=== PATIENT | female | born 1960 | race Caucasian/White ===

== ENCOUNTER → 2019-12-13 | Outpatient (CLI) | payer OTHER ==
[~2019-12-13] MED LIST: ACET325 PO; ALBU90OI INH; AMOCLA875 PO; ASCO500 PO; ASPI325 PO; ATEN25 PO; AZIT250 PO; AZIT500 PO; BCOIRO PO; CALC PO; CHOL10002 PO; DAYQUIL; DOXY100T53 PO; ESCI10 PO; ESTR1; FISH1000 PO; FLEC50 PO; FLUT.05NI; FURO40 PO; Flecainide Acet50 MG PO; GUAPHELA PO; HYDACE5 PO; HYDGUAL120 PO; HYDR1TAB94 PO; IBUP600 PO; LEVSOD100 PO; LISI5 PO; MELO7.5 PO; METF500 PO; METO50 PO; MONT10T PO; MUCINEX 600 MG; OMEP20ER PO; ONDA4 PO; POTCHL20ER PO; PROACE100 PO; RXHYDGUAS PO; RXONDA4ODT MM; RXPROACE PO; RXSULTRIDS PO; SULTRIDS PO; TETR250 PO; VICODIN 5-3001 EACH PO; WARF5 PO; XARELTO20 MG PO
[2019-12-17 15:08] LABS: HPV 16 Negative (Negative); HPV 18 Negative (Negative); HPV OTHER HR TYPES Negative (Negative)
== END | disposition home or self-care (01) ==
LOC: LAB UCHC 12:18 → LAB SHORT 12:18
PROVIDERS: Internal Medicine
DX: Z01.419 Encounter for gynecological examination (general) (routine) without abnormal findings (principal)
CPT/HCPCS: 87624; G0123

== ENCOUNTER 2020-09-16 21:19 | Emergency (ER) | payer OTHER ==
[~2020-09-16] VITALS: Ht 162.6 cm; Wt 99.8 kg
[2020-09-16 22:39] LABS: BASOPHILS ABSOLUTE AUTO 0.02 K/mm3 (0.00-0.23); BASOPHILS PERCENT AUTO 0 % (0-2); EOSINOPHILS ABSOLUTE AUTO 0.01 K/mm3 (0.00-0.68); EOSINOPHILS PERCENT AUTO 0 % (0-6); Hematocrit 39.5 % (33.0-51.0); IMMATURE GRAN ABSOLUTE AUTO 0.01 K/mm3 (0.00-0.10); IMMATURE GRAN PERCENT AUTO 0 % (0-1); LYMPHOCYTES ABSOLUTE AUTO 1.52 K/mm3 (0.84-5.20); LYMPHOCYTES PERCENT AUTO 27 % (21-46); MONOCYTES ABSOLUTE AUTO 0.39 K/mm3 (0.16-1.47); MONOCYTES PERCENT AUTO 7 % (4-13); Mean Corpuscular HGB 29.5 pg (26.0-34.0); Mean Corpuscular HGB Conc 35.4 g/dL (31.5-36.5); Mean Corpuscular Volume 83 fL (80-100); Mean Platelet Volume 11.6 fL (9.1-12.4); NEUTROPHILS ABSOLUTE AUTO 3.73 K/mm3 (1.96-9.15); NEUTROPHILS PERCENT AUTO 66 % (41-73); Platelet Count 228 K/mm3 (150-400); RDW Coefficient Variation 14.2 % (11.7-14.2); RDW Standard Deviation 43.3 fL (35.1-46.3); Red Blood Cell Count 4.75 M/mm3 (3.80-5.20); White Blood Cell Count 5.68 K/mm3 (4.00-11.30)
[2020-09-16 23:04] LABS: Alanine Aminotransfer (ALT/SGP 63 U/L (12-78); Albumin, Blood 3.4 g/dL (3.4-5.0); Alk Phos 75 U/L (50-136); Anion Gap 8 mmol/L (6-16); Aspartate Aminotrans (AST/SGOT 29 U/L (12-37); Bilirubin, Total 0.6 mg/dL (0.1-1.0); Blood Urea Nitrogen 4 mg/dL (8-24); CO2, Blood 24 mmol/L (21-32); Calcium, Blood 8.1 mg/dL (8.5-10.1); Chloride, Blood 103 mmol/L (98-108); Creatinine, Blood 0.81 mg/dL (0.40-1.00); Globulin, Blood 3.5 g/dL (2.2-4.0); Glomerular Filtration Rate >60 (60-); Glucose, Blood 149 mg/dL (70-99); Potassium, Blood 3.6 mmol/L (3.5-5.5); Sodium, Blood 135 mmol/L (136-145); Total Protein, Blood 6.9 g/dL (6.4-8.2)
[2020-09-17] MEDS ORDERED: ONDA4ODT MM (03:30)
== END 2020-09-17 04:15 | disposition home or self-care (01) ==
LOC: ER 21:19
PROVIDERS: Student in an Organized Health Care Education/Training Program
DX: U07.1 COVID-19 (principal); I48.20 Chronic atrial fibrillation, unspecified; R74.02 Elevation of levels of lactic acid dehydrogenase [LDH]; E11.9 Type 2 diabetes mellitus without complications; I42.9 Cardiomyopathy, unspecified; G47.30 Sleep apnea, unspecified; I10 Essential (primary) hypertension; Z88.5 Allergy status to narcotic agent; Z79.82 Long term (current) use of aspirin; Z79.899 Other long term (current) drug therapy; Z79.01 Long term (current) use of anticoagulants; Z99.89 Dependence on other enabling machines and devices; Z95.0 Presence of cardiac pacemaker
CPT/HCPCS: 71045; 80053; 83605; 85025; 93005; 93010; 96360; 96361; 99285-25; J7030; J7120

== ENCOUNTER 2022-07-28 08:40 | Day surgery (SDC) | payer OTHER ==
[~2022-07-28] VITALS: Ht 162.6 cm; Wt 100.0 kg
[~2022-07-28 08:40] MED LIST changes: +ONDA4ODT MM
[2022-07-28] MEDS ORDERED: GLUCOPHAGE1000 M1 PO (09:05)
[2022-07-28] MEDS ORDERED: CARV25 PO (09:06)
[2022-07-28] MEDS ORDERED: ATOR20 PO (09:06)
[2022-07-28] MEDS ORDERED: PRINIVIL5 MG PO (09:06)
[2022-07-28] MEDS ORDERED: GABA300 PO (09:07)
[2022-07-28] MEDS ORDERED: WARF5 PO (09:08)
[2022-07-28] MEDS ORDERED: WARF7.5 PO (09:09)
[2022-07-28] MEDS ORDERED: DILT120 PO (09:10)
[2022-07-28] MEDS ORDERED: DICLOFENAC SOD100 G1 (09:10)
[2022-07-28] MEDS ORDERED: STEGLATRO5 MG PO (09:11)
[2022-07-28 09:18] VITALS: BP 108/71
[2022-07-28 09:21] VITALS: BP 108/71
[2022-07-28 13:03] VITALS: BP 103/65
--- NOTE | 2022-07-28 13:08 | NUR ---
PT RETURNED TO RECOVERY ROOM IN [facility]. LACW PACEMAKER CHANGE-OUT SITE SOFT NON-TENDER WITH NO HEMATOMA, NO BLEEDING AND INTACT DRESSING IN PLACE. PT DENIES CHEST PAIN. PT'S GRANDAUGHTER IN ROOM. PT EATING LUNCH. CALL LIGHT IN REACH.
[2022-07-28 13:15] VITALS: BP 115/67
[2022-07-28] MEDS ORDERED: KEFLEX PO (13:15)
[2022-07-28 13:30] VITALS: BP 111/71
--- NOTE | 2022-07-28 13:35 | NUR ---
DR LO IN ROOM TO SEE PT.
[2022-07-28 13:45] VITALS: BP 125/78
--- NOTE | 2022-07-28 14:12 | NUR ---
NO CHANGES TO LACW PACEMAKER SITE. DISCHARGE INSTRUCTIONS REVIEWED ALL QUESTIONS ANSWERED. 20 G IV DISCONTINUED FROM L AC WITH INTACT CANNULA. PT AMBULATED TO BR TO VOID. PT ESCORTED OUT VIA WHEELCHAIR ESCORT.
== END 2022-07-28 14:10 | disposition home or self-care (01) ==
LOC: MHTC 08:40
DX: Z45.010 Encounter for checking and testing of cardiac pacemaker pulse generator [battery] (principal); I49.5 Sick sinus syndrome; I48.0 Paroxysmal atrial fibrillation; E11.9 Type 2 diabetes mellitus without complications; K21.9 Gastro-esophageal reflux disease without esophagitis; I11.0 Hypertensive heart disease with heart failure; I50.9 Heart failure, unspecified; G47.30 Sleep apnea, unspecified; E66.9 Obesity, unspecified; Z68.38 Body mass index [BMI] 38.0-38.9, adult; Z88.5 Allergy status to narcotic agent; Z79.84 Long term (current) use of oral hypoglycemic drugs; Z79.01 Long term (current) use of anticoagulants; Z79.899 Other long term (current) drug therapy
CPT/HCPCS: 33228; 99152; 99153; A9270; C1781; C1785; J0690; J1644; J2250; J3010; J7030; J7040

== ENCOUNTER 2024-08-21 06:17 | Day surgery (SDC) | payer OTHER ==
[~2024-08-21] VITALS: Ht 162.6 cm; Wt 95.0 kg
[~2024-08-21 06:17] MED LIST changes: +1/2 NS 250ml250 ML; +ATOR20 PO; +CARV25 PO; +DICLOFENAC SOD100 G1; +DILT120 PO; +ELIQUIS5 M2 PO; +FAMO20 PO; +FLONASE ALLERG9.9 ML; +GABA300 PO; +GLUCOPHAGE1000 M1 PO; +KEFLEX PO; +Lisinopril2.5 MG PO; +ROSUVASTATIN CAL5 MG PO; +STEGLATRO5 MG PO; +TOPROL XL200 MG PO; +WARF7.5 PO
--- NOTE | 2024-08-21 06:31 | NUR ---
08/21/[address] SEE ANESTHESIA RECORDS.
--- NOTE | 2024-08-21 06:45 | NUR ---
AMBULATORY INTO SDS. PT DENIES PAIN. HISTORY AND ALLERGIES REVIEWED. VS WDL. LUNGS CLEAR-PT DENIES SOB. SATS>90% ON RA. NPO STATUS CONFIRMED. COLON PREP CONFIRMED. PT SISTER GERRY IS RIDE HOME TODAY.
[2024-08-21 06:48] VITALS: BP 119/82
[2024-08-21 08:50] VITALS: BP 94/68
[2024-08-21 09:00] VITALS: BP 101/74
[2024-08-21 09:10] VITALS: BP 109/80
--- NOTE | 2024-08-21 09:23 | NUR ---
Patient up to Ambulate independently. Gait steady. Discharge instructions reviewed with patient. Patient verbalizes understanding. Copy given to patient to take home. Patient States Post-Procedure ride home has been arranged. Discharged via wheelchair to private car for ride home. PT TOLERATING PO, REPORTS READY TO GO HOME.
== END 2024-08-21 09:23 | disposition home or self-care (01) ==
LOC: ORSCMMR 06:17 → ORD 08:00 → ORSCMMR 09:23
PROVIDERS: Internal Medicine Gastroenterology
PROC: 0DB68ZX Excision of Stomach, Via Natural or Artificial Opening Endoscopic, Diagnostic (ICD-10-PCS; principal; 2024-08-21 08:00)
PROC: 0DB98ZX Excision of Duodenum, Via Natural or Artificial Opening Endoscopic, Diagnostic (ICD-10-PCS; principal; 2024-08-21 08:00)
PROC: 0DB48ZX Excision of Esophagogastric Junction, Via Natural or Artificial Opening Endoscopic, Diagnostic (ICD-10-PCS; principal; 2024-08-21 08:00)
PROC: 0DBK8ZX Excision of Ascending Colon, Via Natural or Artificial Opening Endoscopic, Diagnostic (ICD-10-PCS; principal; 2024-08-21 08:00)
DX: R10.13 Epigastric pain (principal); Z12.11 Encounter for screening for malignant neoplasm of colon; Z87.19 Personal history of other diseases of the digestive system; D12.2 Benign neoplasm of ascending colon; E66.9 Obesity, unspecified; Z68.36 Body mass index [BMI] 36.0-36.9, adult; K29.70 Gastritis, unspecified, without bleeding; K31.9 Disease of stomach and duodenum, unspecified; G47.33 Obstructive sleep apnea (adult) (pediatric); E11.9 Type 2 diabetes mellitus without complications; K21.9 Gastro-esophageal reflux disease without esophagitis; I10 Essential (primary) hypertension; Z79.01 Long term (current) use of anticoagulants; Z79.84 Long term (current) use of oral hypoglycemic drugs; Z79.899 Other long term (current) drug therapy
CPT/HCPCS: 82947; 88305; 88342; J2704; J7120

== ENCOUNTER → 2024-11-13 | Outpatient (CLI) | payer OTHER ==
[2024-11-13 18:04] LABS: Bacterial Vaginosis PCR Negative (NEGATIVE); Candida Group, PCR NOT DETECTED (NOT DETECT); Candida glabrata-krusei, PCR NOT DETECTED (NOT DETECT)
== END ==
LOC: LAB SHORT 14:41 → LAB 14:41
PROVIDERS: Student in an Organized Health Care Education/Training Program
DX: Z01.419 Encounter for gynecological examination (general) (routine) without abnormal findings (principal)
CPT/HCPCS: 81515; 87624; G0123